=== PATIENT | male | born 1935 | race Caucasian/White ===

== ENCOUNTER → 2017-10-25 | Outpatient (CLI) | payer MEDICARE | END | disposition home or self-care (01) | LOC: SHCH 14:18 | PROVIDERS: ATTEND Internal Medicine Cardiovascular Disease | DX: I35.8 Other nonrheumatic aortic valve disorders (principal); I10 Essential (primary) hypertension; E78.5 Hyperlipidemia, unspecified; Z87.891 Personal history of nicotine dependence | CPT/HCPCS: 93306; 93880; 93978 ==

== ENCOUNTER → 2017-11-15 | Outpatient (CLI) | payer MEDICARE ==
[~2017-11-15] MED LIST: IOHEXOL 350 MG/ML 100ML INFUS..BTL IV ONE; IOHEXOL-350 50ML VIAL IV ONE
== END | disposition home or self-care (01) ==
LOC: RAH 12:54
PROVIDERS: ATTEND Internal Medicine Cardiovascular Disease
DX: I65.23 Occlusion and stenosis of bilateral carotid arteries (principal); I70.0 Atherosclerosis of aorta; I73.9 Peripheral vascular disease, unspecified; I10 Essential (primary) hypertension; E78.5 Hyperlipidemia, unspecified; Z87.891 Personal history of nicotine dependence
CPT/HCPCS: 70498; 74175; Q9967 ×2

== ENCOUNTER → 2019-01-03 | Outpatient (CLI) | payer MEDICARE ==
[~2019-01-03] MED LIST changes: +ASPI-1197 PO; +ATOR40TA71 PO; +DILT120C92 PO; +DONE5TAB33 PO; +FLUO20CA30 PO; -IOHEXOL 350 MG/ML 100ML INFUS..BTL IV ONE; -IOHEXOL-350 50ML VIAL IV ONE; +LISI10TA7 PO; +LOPE2CAP PO; +MELA5CAP PO; +MIRA25TA PO; +QUET50TA55 PO; +TAMS0.4C32 PO; +VIT1CAPS47 PO
== END | disposition home or self-care (01) ==
LOC: SHCH 10:49
PROVIDERS: ATTEND Internal Medicine Cardiovascular Disease
DX: I65.23 Occlusion and stenosis of bilateral carotid arteries (principal)
CPT/HCPCS: 93880